=== PATIENT | male | born 1960 | race Caucasian/White ===

== ENCOUNTER 2019-04-22 11:58 | Emergency (ER) | payer OTHER ==
[~2019-04-22] VITALS: Ht 170.2 cm; Wt 90.7 kg
[~2019-04-22 11:58] MED LIST: B12INJ; FISH OIL 1,0001 EAC5; MILK THISTLE500 MG; MULTIVITAMINS1 EAC7; VITAMIN D1000 UNI1
[2019-04-22 12:23] LABS: ABSOLUTE NEUTROPHILS 3.8 thou/uL (1.4-8.2); BASOPHILS 0.3 % (0.0-2.0); EOSINOPHILS 1.2 % (0.0-3.0); HEMATOCRIT 41.3 % (42.0-52.0); HEMOGLOBIN 14.5 gm/dL (14.0-18.0); LYMPHOCYTES 30.6 % (24.0-44.0); MCH 30.1 pg (26.0-34.0); MCHC 35.2 g/dL (28.0-37.0); MCV 85.5 fL (80.0-100.0); MONOCYTES 9.6 % (1.0-8.0); PLATELET COUNT 246 thou/uL (150-400); POLYS 58.3 % (36.0-66.0); RBC 4.83 mil/uL (4.50-6.00); RDW 12.6 % (10.5-14.5); WBC 6.6 thou/uL (4.0-11.0)
[2019-04-22 12:38] LABS: ANION GAP 9 mmol/L (7-16); BUN 17 mg/dL (7-18); CALCIUM 9.3 mg/dL (8.5-10.1); CHLORIDE 103 mmol/L (98-107); CO2 28 mmol/L (21-32); CREATININE 0.8 mg/dL (0.7-1.3); GLUCOSE 115 mg/dL (74-106); POTASSIUM 3.5 mmol/L (3.5-5.1); SODIUM 140 mmol/L (136-145)
[2019-04-22 12:48] LABS: ALBUMIN 3.9 g/dL (3.4-5.0); SGOT 31 U/L (15-37); SGPT 38 U/L (30-65); TOTAL BILIRUBIN 0.5 mg/dL (<0.1-1.0); TOTAL PROTEIN 7.8 g/dL (6.4-8.2); TROPONIN-I <0.06 ng/mL (<0.06)
[2019-04-22] MEDS ORDERED: ASPIR 8181 MG PO (13:37)
[2019-04-22 15:52] VITALS: BP 131/68
--- NOTE | 2019-04-23 09:06 | EKG ---
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[place] : 1960 Requested By: Kia Wetzel Order Number: [id number] MD: Elbert Che Measurements Intervals [place] Rate: 77 P: 13 TN: 141 QRS: 1 QRSD: 89 T: 7 QT: 385 QTc: 436 Interpretive Statements Sinus rhythm Nonspecific T wave abnormality No previous ECG available for comparison Electronically Signed On 04-23-2019 9:06:13 CDT by Elbert Che [email or web address] ��������������������������������������������� <ELECTRONICALLY SIGNED> ���������������������������������������� By: Elbert Che MD, [facility] ��������������������������������������������� 04/23/19 0906 [id number] 1203 Elbert Che MD, FACC /EPI
== END 2019-04-22 15:52 | disposition home or self-care (01) ==
LOC: ER 11:58
PROVIDERS: Emergency Medicine
DX: R42 Dizziness and giddiness (principal); Z88.0 Allergy status to penicillin